=== PATIENT | male | born 1985 | race Two or more races ===

== ENCOUNTER 2018-03-14 07:20 | Emergency (ER) | payer BC, OTHER ==
--- NOTE | 2018-03-14 07:23 | EDPHY ---
HPI/HX/ROS/PE/MDM Narrative: CHIEF COMPLAINT: Nose injury HPI: The patient is a 33 y/o male complaining of a nose injury after falling and hitting his nose last night at 23:00, 8.5 hours ago. The patient was walking down some stairs when he tripped and subsequently hit his nose. He denies loss of conscious or any other known injury. He is unsure when his last tetanus shot was. No headache, neck pain, chest pain, shortness of breath, abdominal pain, urinary or bowel complaints, numbness, paresthesias, fever. REVIEW OF SYSTEMS: Aside from elements discussed in the HPI, a comprehensive 10 system review of systems is otherwise negative. PMH: Reflux, inguinal hernia repair SOCIAL HISTORY: Lives in [place], single, employed PHYSICAL EXAM: General: Patient is alert, in no acute distress. ENT: Eyes are normal to inspection. Ear and throat inspection normal. W-shaped 2.5 cm laceration on the bridge of the nose; no sinus or bridge of nose tenderness. EOMI. Neck: Normal inspection. Full range of motion. Respiratory: No respiratory distress. Breath sounds normal bilaterally. Cardiovascular: Regular rate and rhythm. Strong peripheral pulses. Normal cap refill. Neuro: Oriented x3. Normal motor function. Normal sensory function. ED Course: 731: Reassessed patient and performed a laceration repair. Imaging studies are not indicated at this time as the patient has no sinus or bridge of nose tenderness. Procedure: Laceration repair. Verbal consent was obtained from the patient. The W-shaped 2.5 cm laceration on the bridge of the nose was anesthetized using Bupivacaine. The wound was cleaned with standard ED protocol, draped and explored to its base with a gloved finger. There were no deep structures involved. The wound was repaired in single layer technique with #3 6-0 Prolene and Dermabond. The wound repair was simple. The procedure was performed by myself, Dr. Coronel. 0800: Reassessed patient and discussed return precautions. I have advised him to return to the emergency department in 7 days for a suture removal; patient is comfortable with this plan. - Data Points Medications Given: Discontinued Medications Diphtheria/Tetanus/Acell Pertussis (Boostrix) 0.5 ml IM .ONCE ONE Stop: 03/14/18 07:35 Last Admin: 03/14/18 07:37 Dose: 0.5 ml General Time Seen by Provider: 03/14/18 07:21 Initial Vital Signs: Initial Vital Signs Temperature (C) 37.1 C 03/14/18 07:22 Heart Rate 78 03/14/18 07:22 Respiratory Rate 18 03/14/18 07:22 Blood Pressure 134/97 H 03/14/18 07:22 O2 Sat (%) 98 03/14/18 07:22 O2 Delivery Mode Room Air Allergies/Adverse Reactions: No Known Allergies Allergy (Verified 03/14/18 07:21) Home Medications: Medication Instructions Recorded Miscellaneous Medical Supply [NO 1 ea MISC AD 08/02/13 HOME MEDS] Departure - Departure Disposition: Home, Routine, Self-Care Clinical Impression: Laceration of nose Qualifiers: Encounter type: initial encounter Qualified Code(s): S01.21XA - Laceration without foreign body of nose, initial encounter Condition: Good Instructions: Care For Your Stitches (ED), Laceration (ED), Facial Laceration ( ED) Additional Instructions: Sutures out in 7 days; please return to this emergency department for the suture removal. Return to the Emergency Department for fever, redness, discharge from wound, increasing pain or other worsening of condition. Referrals: Abhishek Guadarrama MD [Medical Doctor] - As per Instructions [facility],. [Clinic] - As per Instructions Report Scribed for: Guilherme Coronel Report Scribed by: Flaquita Arango Date of Report: 03/14/18 Time of Report: 07:22 Physician Review and Approval Statement: Portions of this note were transcribed by an ED scribe. I personally performed the history, physical exam, and medical decision making; and confirm the accuracy of the information in the transcribed note.
[2018-03-14 07:25] VITALS: BP 134/97
[2018-03-14] MEDS ORDERED: TDAP ADULT 0.5 ML INJ (BOOSTRIX) IM ONE (07:34)
[2018-03-14] MEDS ORDERED: SKIN ADHESIVE (DERMABOND) 1 EACH TP ONE (07:51)
[2018-03-14] MEDS ORDERED: BACITRACIN OINTMENT 1 PACKET TP ONE (08:07)
== END 2018-03-22 17:43 | disposition home or self-care (01) ==
PROC: 09QKXZZ Repair Nasal Mucosa and Soft Tissue, External Approach (ICD-10-PCS; principal; 2018-03-14)
DX: S01.21XA Laceration without foreign body of nose, initial encounter (principal); W10.8XXA Fall (on) (from) other stairs and steps, initial encounter; Y92.009 Unspecified place in unspecified non-institutional (private) residence as the place of occurrence of the external cause; Z23 Encounter for immunization